=== PATIENT | female | born 1950 | race Caucasian/White ===

== ENCOUNTER 2018-06-23 13:48 | Emergency (ER) | payer MEDICARE ==
[~2018-06-23] VITALS: Ht 156.2 cm; Wt 61.4 kg
[~2018-06-23 13:48] MED LIST: AMOXICILLIN500 MG PO; BACTRIM DS1 TAB PO; CLINDAMYCIN150 MG PO; DIFLUCAN150 MG PO; FLORASTOR250 M1 PO; LORTAB 7.57.5 MG PO; MEDDOSEPAK PO; MUCINEX600 MG PO; NASACORT A55 MCG/ACT; NASACORT AQ55 MCG/AC; PNEUMOVAX 23 IM; TERBINAFINE250 M1 PO; TERBINAFINE250 MG PO; TESSALON PER100 MG PO; ULTRAM50 M1 PO
[2018-06-23] MEDS ORDERED: MEDDOSEPAK PO (15:46)
[2018-06-23] MEDS ORDERED: DUONEB IN ×2 (15:46→15:47)
[2018-06-23] MEDS ORDERED: ZITHROMAX Z-PA250 MG PO (15:46)
[2018-06-23 16:05] VITALS: BP 148/70
== END 2018-06-23 16:05 | disposition home or self-care (01) ==
LOC: ED 13:48
DX: J40 Bronchitis, not specified as acute or chronic (principal); R05 Cough